=== PATIENT | female | born 1955 | race Caucasian/White ===

== ENCOUNTER 2017-03-23 11:57 | Emergency (ER) | payer MEDICARE ==
--- NOTE | 2017-03-23 12:04 | Emergency Department Record ---
History of Present Illness - General Chief Complaint: Palpitations Stated Complaint: HEART RACING Time Seen by Provider: 03/23/17 12:02 Source: Patient Mode of Arrival: Ambulatory Limitations: No limitations - History of Present Illness Initial Comments: pt has had a few bouts of palpitations in the last few daysa. she wears a fitbit and at one time her hr was 135 and the other 122. she has had no cp. she did feel dizzy MD Complaint: Palpitations - Related Data Home Medications Medication Instructions Recorded Confirmed Last Taken Acetaminophen with Codeine 1 each PO BID PRN 03/23/17 03/23/17 Unknown [Tylenol with Codeine #3 Tablet] Aspirin [Ecotrin] 81 mg PO BID 03/23/17 03/23/17 Unknown Gabapentin [Neurontin] 300 mg PO BID 03/23/17 03/23/17 Unknown Glimepiride [Amaryl] 4 mg PO BID 03/23/17 03/23/17 Unknown Glucosamine HCl 2,000 mg PO BID 03/23/17 03/23/17 Unknown Hydrochlorothiazide 25 mg PO DAILY 03/23/17 03/23/17 Unknown Lisinopril 20 mg PO DAILY 03/23/17 03/23/17 Unknown Meloxicam 15 mg PO DAILY 03/23/17 03/23/17 Unknown Metformin HCl 1,000 mg PO BID 03/23/17 03/23/17 Unknown Oxybutynin Chloride [Ditropan] 5 mg PO BID 03/23/17 03/23/17 Unknown Allergies Allergy/AdvReac Type Severity Reaction Status Date / Time acetaminophen [From Vicodin] Allergy HIVES Verified 03/23/17 12:08 hydrocodone [From Vicodin] Allergy HIVES Verified 03/23/17 12:08 Penicillins Allergy HIVES Verified 03/23/17 12:08 Review of Systems Reviewed: No additional complaints except as noted below Constitutional: Reports: As per HPI. Denies: Chills, Fever, Malaise, Night sweats, Weakness, Weight change Eyes: Reports: As per HPI. Denies: Eye discharge, Eye pain, Photophobia, Vision change ENT: Reports: As per HPI. Denies: Congestion, Dental pain, Ear pain, Epistaxis , Hearing loss, Throat pain Respiratory: Reports: As per HPI. Denies: Cough, Dyspnea, Hemoptysis, Stridor, Wheezes Cardiovascular: Reports: As per HPI. Denies: Arrhythmia, Chest pain, Dyspnea on exertion, Edema, Murmurs, Orthopnea, Palpitations, Paroxysmal nocturnal dyspnea, Rheumatic Fever, Syncope Endocrine: Reports: As per HPI. Denies: Fatigue, Heat or cold intolerance, Polydipsia, Polyuria Gastrointestinal: Reports: As per HPI. Denies: Abdominal pain, Constipation, Diarrhea, Hematemesis, Hematochezia, Melena, Nausea, Vomiting Genitourinary: Reports: As per HPI. Denies: Abnormal menses, Discharge, Dyspareunia, Dysuria, Frequency, Hematuria, Incontinence, Retention, Urgency Musculoskeletal: Reports: As per HPI. Denies: Arthralgia, Back pain, Gout, Joint swelling, Myalgia, Neck pain Skin: Reports: As per HPI. Denies: Bruising, Change in color, Change in hair/ nails, Lesions, Pruritus, Rash Neurological: Reports: As per HPI. Denies: Abnormal gait, Confusion, Headache, Numbness, Paresthesias, Seizure, Tingling, Tremors, Vertigo, Weakness Psychiatric: Reports: As per HPI. Denies: Anxiety, Auditory hallucinations, Depression, Homicidal thoughts, Suicidal thoughts, Visual hallucinations Hematological/Lymphatic: Reports: As per HPI. Denies: Anemia, Blood Clots, Easy bleeding, Easy bruising, Swollen glands Physical Exam - General General Appearance: Alert, Oriented x3, Cooperative, No acute distress - Head Head exam: Normal inspection - Eye Eye exam: Normal appearance, PERRL Pupils: Normal accommodation - ENT ENT exam: Normal exam, Mucous membranes moist, Normal external ear exam, Normal orophraynx Ear exam: Normal external inspection. negative: External canal tenderness Nasal Exam: Normal inspection. negative: Discharge, Sinus tenderness Mouth exam: Normal external inspection, Tongue normal Teeth exam: Normal inspection. negative: Dental caries Throat exam: Normal inspection. negative: Tonsillar erythema, Tonsillar exudate - Neck Neck exam: Normal inspection, Full ROM. negative: Tenderness - Respiratory Respiratory exam: Normal lung sounds bilaterally. negative: Respiratory distress - Cardiovascular Cardiovascular Exam: Regular rate, Normal rhythm, Normal heart sounds - GI/Abdominal GI/Abdominal exam: Soft, Normal bowel sounds. negative: Tenderness - Rectal Rectal exam: Deferred - exam: Deferred - Extremities Extremities exam: Normal inspection, Full ROM, Normal capillary refill. negative: Tenderness - Back Back exam: Reports: Normal inspection, Full ROM. Denies: Muscle spasm, Rash noted, Tenderness - Neurological Neurological exam: Alert, Normal gait, Oriented X3, Reflexes normal - Psychiatric Psychiatric exam: Normal affect, Normal mood - Skin Skin exam: Dry, Intact, Normal color, Warm Course - Reevaluation(s) Reevaluation #1: 03/23/17 13:54 d/w dr ji Medical Decision Making - Lab Data Result diagrams: 03/23/17 12:10 03/23/17 12:10 Disposition Disposition: Discharge Clinical Impression: Palpitations Disposition: Home, Self-Care Condition: (1) Good Instructions: Heart Palpitations (ED) Additional Instructions: follow up with dr ji next week. return sooner if worse. wear holter monitor Forms: Patient Portal Access Quality - Quality Measures Quality Measures: N/A - Blood Pressure Screening Does Patient Have Any of the Following: No Blood Pressure Classification: Pre-Hypertensive BP Reading Systolic Measurement: 149 Diastolic Measurement: 85 Screening for High Blood Pressure: < Pre-Hypertensive BP, F/U Documented > [ [id number]] Pre-Hypertensive Follow-up Interventions: Follow-up with rescreen every year.
[2017-03-23 12:32] LABS: BASO % 0.5 % (0-6); EOS % 1.7 % (0-6); GRAN % 59.2 % (47-80); HEMATOCRIT 42.7 % (35.0-47.0); LYMPH % 30.7 % (16-45); MEAN CELL VOLUME 91.8 fl (81-97); MEAN CORPUSCULAR HEMOGLOBIN 30.1 pg (27-33); MEAN CORPUSCULAR HGB CONC 32.8 g/dl (32-36); MEAN PLATELET VOLUME 9.8 fl (7.4-10.4); MONO % 7.9 % (0-9); PLATELET COUNT 333 K/uL (130-400); RED BLOOD COUNT 4.65 M/uL (3.80-5.40); RED CELL DISTRIBUTION WIDTH 13.8 % (11.5-14.5); WHITE BLOOD COUNT W/O DIFF 8.7 K/uL (4.2-12.2)
[2017-03-23 12:46] LABS: BLOOD UREA NITROGEN 19 mg/dL (8-23); CREATININE 0.6 mg/dL (0.5-0.9); EST GLOMERULAR FILTRATION RATE > 60 mL/min
[2017-03-23 12:47] LABS: TOTAL PROTEIN 7.2 g/dL (6.6-8.7)
[2017-03-23 12:49] LABS: GLUCOSE,RANDOM 146 mg/dL (74-109)
[2017-03-23 12:51] LABS: ALB/GLOB RATIO 1.6 (1.1-1.8); ALBUMIN 4.4 g/dL (4.0-5.0); ALT/SGPT 20 U/L (<33); AST/SGOT 18 U/L (10.0-35.0)
[2017-03-23 12:52] LABS: ALKALINE PHOSPHATASE 67 U/L (35-104); CREATINE PHOSPHOKINASE 52 U/L (26-192)
[2017-03-23 12:55] LABS: CKMB 1.7 ng/mL (<3.77)
[2017-03-23 13:02] LABS: THYROID STIMULATING HORMONE 1.87 uIU/mL (0.270-4.20)
--- NOTE | 2017-03-24 17:17 | RADIOLOGY REPORT ---
EXAM: CHEST 2 VIEWS HISTORY: PALPITATIONS, DIZZINESS. TECHNIQUE: PA and lateral views. COMPARISON: None. FINDINGS: Heart size is normal. Mild torsion of the aorta. The lungs appear expanded with no acute infiltrate seen. There are a couple of small nodular densities in the left base, which are probably small granulomas. Old films would be useful to confirm. No pleural effusion or pneumothorax evident. Mild spurring in the spine. No definite acute infiltrate seen. IMPRESSION: 1. NO ACUTE INFILTRATE EVIDENT. 2. COUPLE OF SMALL NODULAR DENSITIES IN THE LEFT BASE ARE PROBABLY GRANULOMAS. RECOMMEND OLD FILMS TO CONFIRM. JOB NUMBER: [id number] [facility]
--- NOTE | 2017-03-26 17:29 | Holter Monitor Report ---
DATE OF TEST: 03/26/17 Approximate 24-hour Holter monitoring was submitted and reveals a minimum heart rate of 53, maximum 130, average 84. There were 1867 ventricular ectopic beats most of which were single, occasional couplets. There was one episode of idioventricular rhythm at approximately 3:50 a.m. on Sunday, 22 beats in duration. There were 79 atrial premature beats, short runs of ectopic re- entrant atrial tachycardia heart rate approaching 130. There was one episode of possible atrial fibrillation at 2:16 p.m. Sunday. The patient had long symptoms of palpitations that generally correlated with ventricular ectopy. IMPRESSION: APPROXIMATE 24-HOUR HOLTER MONITOR REVEALING 1841 SINGLE VENTRICULAR ECTOPIC BEATS, One 22 BEAT RUN OF IDIOVENTRICULAR RHYTHM RATE APPROXIMATELY 83, 79 ECTOPIC ATRIAL PREMATURE BEATS WITH EPISODES OF RE-ENTRANT SVT, HEART RATE AROUND 130, ONE EPISODE OF POSSIBLE ATRIAL FIBRILLATION OF BRIEF DURATION. JOB NUMBER: [id number] [facility]
== END 2017-03-23 14:53 | disposition home or self-care (01) ==
LOC: ER 11:57
DX: R00.2 Palpitations (principal); R42 Dizziness and giddiness; E11.9 Type 2 diabetes mellitus without complications; I10 Essential (primary) hypertension; Z79.84 Long term (current) use of oral hypoglycemic drugs
CPT/HCPCS: 71020; 80053; 82550; 82553; 84443; 84484; 85025; 93005; 93010; 93225; 93226; 99284